=== PATIENT | male | born 1945 | race Caucasian/White ===

== ENCOUNTER 2021-08-21 07:54 | Observation (INO) | payer MEDICARE ==
[~2021-08-21] VITALS: Ht 175.3 cm; Wt 88.2 kg
[~2021-08-21 07:54] MED LIST: ATORVASTATIN CA20 MG PO; Aspir 8181 MG PO; METF500C PO; Prinivil10 MG PO; TAMSULOSIN HCL0.4 M1 PO
[2021-08-21 08:22] LABS: BASOPHILS ABSOLUTE AUTO 0.01 K/mm3 (0.00-0.23); BASOPHILS PERCENT AUTO 0 % (0-2); EOSINOPHILS ABSOLUTE AUTO 0.04 K/mm3 (0.00-0.68); EOSINOPHILS PERCENT AUTO 1 % (0-6); Hematocrit 41.6 % (37.0-53.0); Hemoglobin 14.1 g/dL (13.5-17.5); IMMATURE GRAN ABSOLUTE AUTO 0.03 K/mm3 (0.00-0.10); IMMATURE GRAN PERCENT AUTO 0 % (0-1); LYMPHOCYTES ABSOLUTE AUTO 1.44 K/mm3 (0.84-5.20); LYMPHOCYTES PERCENT AUTO 20 % (21-46); MONOCYTES PERCENT AUTO 6 % (4-13); Mean Corpuscular HGB Conc 33.9 g/dL (31.5-36.5); Mean Corpuscular Volume 83 fL (80-100); NEUTROPHILS ABSOLUTE AUTO 5.34 K/mm3 (1.96-9.15); NEUTROPHILS PERCENT AUTO 74 % (41-73); Platelet Count 108 K/mm3 (150-400); RDW Coefficient Variation 13.4 % (11.7-14.2); RDW Standard Deviation 40.3 fL (35.1-46.3); Red Blood Cell Count 5.04 M/mm3 (4.30-5.90); White Blood Cell Count 7.26 K/mm3 (4.00-11.30)
[2021-08-21 08:40] LABS: Albumin, Blood 3.7 g/dL (3.4-5.0); Albumin/Globulin Ratio 1.2 (0.8-1.8); Bilirubin, Total 0.6 mg/dL (0.1-1.0); Bun/Creatinine Ratio 43.2 (12.0-20.0); Calcium, Blood 9.1 mg/dL (8.5-10.1); Creatinine, Blood 0.74 mg/dL (0.60-1.20); Globulin, Blood 3.1 g/dL (2.2-4.0); Potassium, Blood 4.2 mmol/L (3.5-5.5); Total Protein, Blood 6.8 g/dL (6.4-8.2)
[2021-08-21 09:39] LABS: Prothrombin Time Results 10.5 Sec (9.7-11.5)
[2021-08-21] MEDS ORDERED: BASAGLAR K100 UNIT/3 SC (10:10)
[2021-08-21] MEDS ORDERED: METOPROLOL SUCC25 MG PO (10:10)
--- NOTE | 2021-08-21 13:34 | NUR ---
PT TO ROOM FROM ED AT 1445. PT ABLE TO AMBULATE TO BED FROM STRETCHER. PT PLACED ON MONITOR AND TELE BOX APPLIED AND CONFIRMED WITH MANAGER TELECOM. PT SR 60'S. PT STATES ALL SYMPTOMS RESOLVED, BACK TO NORMAL STRENGTH. NO NEEDS VOICED AT THIS TIME. CALL LIGHT WITHIN REACH. WILL CONTINUE TO MONITOR.
--- NOTE | 2021-08-21 18:06 | NUR ---
SHIFT SUMMARY PT ALERT AND ORIENTED, FOLLOWS COMMANDS. PT AMBULATING TO BATHROOM UNASSISTED. PT REMAINS AT BASELINE WITH FULL STRENGTH IN ALL EXTREMITIES, NO DEFICITS NOTED. PT TOLERATING DIET. NO NEEDS VOICED AT THIS TIME. WILL CONTINUE TO MONITOR.
--- NOTE | 2021-08-22 04:15 | NUR ---
SHIFT SUMMARY PATIENT HAD NO ACUTE CHANGES OBSERVED. AXOX 4 AND INDEPENDENT IN ROOM. MOVES ALL EXTREMITIES WELL. NO DEFICIT NOTICED. CBG 179. TELE MONITOR SB 57. DENIES PAIN, SOB, AND N/V. VSS/AFEBRILE. CALL LIGHT IN REACH. BED IN LOWEST POSITION. WILL CONTINUE TO MONITOR UNTIL DAY SHIFT NURSE ASSUMES CARE.
[2021-08-22 06:31] LABS: BASOPHILS ABSOLUTE AUTO 0.01 K/mm3 (0.00-0.23); BASOPHILS PERCENT AUTO 0 % (0-2); EOSINOPHILS ABSOLUTE AUTO 0.08 K/mm3 (0.00-0.68); EOSINOPHILS PERCENT AUTO 1 % (0-6); Hematocrit 40.4 % (37.0-53.0); Hemoglobin 13.9 g/dL (13.5-17.5); IMMATURE GRAN ABSOLUTE AUTO 0.02 K/mm3 (0.00-0.10); IMMATURE GRAN PERCENT AUTO 0 % (0-1); LYMPHOCYTES ABSOLUTE AUTO 1.54 K/mm3 (0.84-5.20); LYMPHOCYTES PERCENT AUTO 25 % (21-46); MONOCYTES ABSOLUTE AUTO 0.43 K/mm3 (0.16-1.47); MONOCYTES PERCENT AUTO 7 % (4-13); Mean Corpuscular HGB 28.3 pg (26.0-34.0); Mean Corpuscular HGB Conc 34.4 g/dL (31.5-36.5); Mean Corpuscular Volume 82 fL (80-100); Mean Platelet Volume 12.3 fL (9.1-12.4); NEUTROPHILS ABSOLUTE AUTO 4.02 K/mm3 (1.96-9.15); NEUTROPHILS PERCENT AUTO 66 % (41-73); Platelet Count 98 K/mm3 (150-400); RDW Coefficient Variation 13.2 % (11.7-14.2); RDW Standard Deviation 39.8 fL (35.1-46.3); Red Blood Cell Count 4.92 M/mm3 (4.30-5.90)
[2021-08-22 06:51] LABS: Albumin, Blood 3.6 g/dL (3.4-5.0); Albumin/Globulin Ratio 1.2 (0.8-1.8); Bilirubin, Total 0.5 mg/dL (0.1-1.0); Bun/Creatinine Ratio 35.2 (12.0-20.0); Calcium, Blood 9.1 mg/dL (8.5-10.1); Creatinine, Blood 0.77 mg/dL (0.60-1.20); Globulin, Blood 2.9 g/dL (2.2-4.0); Potassium, Blood 3.6 mmol/L (3.5-5.5); Total Protein, Blood 6.5 g/dL (6.4-8.2)
[2021-08-22] MEDS ORDERED: CLOP75 PO (10:34)
--- NOTE | 2021-08-22 10:53 | NUR ---
DISCHARGE SUMMARY DISCHARGE MEDICATION, FOLLOWUP, AND INSTRUCTIONS GIVEN TO PATIENT. PATIENT VOICED COMPLETE UNDERSTANDING AND HAS NO QUESTIONS AT THIS TIME. IV REMOVED WITH CATHETER TIP INTACT. AWAITING RIDE TO ARRIVE. WILL CONTINUE TO MONITOR
== END 2021-08-22 11:14 | disposition home or self-care (01) ==
LOC: ER 07:54 → MEDS 07:55 → SURS 07:55 → MEDS 12:53
PROVIDERS: Emergency Medicine; ADMIT Family Medicine
DX: G45.9 Transient cerebral ischemic attack, unspecified (principal); I10 Essential (primary) hypertension; N40.0 Benign prostatic hyperplasia without lower urinary tract symptoms; G20 Parkinson's disease; E11.36 Type 2 diabetes mellitus with diabetic cataract; E11.21 Type 2 diabetes mellitus with diabetic nephropathy; Z87.891 Personal history of nicotine dependence; Z79.82 Long term (current) use of aspirin; Z79.4 Long term (current) use of insulin; Z79.899 Other long term (current) drug therapy
CPT/HCPCS: 36415; 70450; 70496; 70498; 71045; 80053; 82947; 83036; 85025; 85610; 85730; 93005; 93010; 93306; 96372; 97161; 97165; 97530; 99285-25; A9270; G0378; J1650; J1815; Q9967

== ENCOUNTER 2021-08-23 15:43 | Emergency (ER) | payer MEDICARE ==
[~2021-08-23] VITALS: Ht 175.3 cm; Wt 88.5 kg
[~2021-08-23 15:43] MED LIST changes: +BASAGLAR K100 UNIT/3 SC; +CLOP75 PO; +METOPROLOL SUCC25 MG PO
[2021-08-23 16:45] LABS: BASOPHILS ABSOLUTE AUTO 0.02 K/mm3 (0.00-0.23); BASOPHILS PERCENT AUTO 0 % (0-2); EOSINOPHILS ABSOLUTE AUTO 0.06 K/mm3 (0.00-0.68); EOSINOPHILS PERCENT AUTO 1 % (0-6); Hematocrit 42.5 % (37.0-53.0); Hemoglobin 14.8 g/dL (13.5-17.5); IMMATURE GRAN ABSOLUTE AUTO 0.03 K/mm3 (0.00-0.10); IMMATURE GRAN PERCENT AUTO 0 % (0-1); LYMPHOCYTES ABSOLUTE AUTO 1.67 K/mm3 (0.84-5.20); LYMPHOCYTES PERCENT AUTO 24 % (21-46); MONOCYTES ABSOLUTE AUTO 0.43 K/mm3 (0.16-1.47); MONOCYTES PERCENT AUTO 6 % (4-13); Mean Corpuscular HGB 28.2 pg (26.0-34.0); Mean Corpuscular HGB Conc 34.8 g/dL (31.5-36.5); Mean Corpuscular Volume 81 fL (80-100); Mean Platelet Volume 12.3 fL (9.1-12.4); NEUTROPHILS ABSOLUTE AUTO 4.65 K/mm3 (1.96-9.15); NEUTROPHILS PERCENT AUTO 68 % (41-73); Platelet Count 122 K/mm3 (150-400); RDW Coefficient Variation 13.4 % (11.7-14.2); RDW Standard Deviation 39.3 fL (35.1-46.3); Red Blood Cell Count 5.24 M/mm3 (4.30-5.90); White Blood Cell Count 6.86 K/mm3 (4.00-11.30)
[2021-08-23 17:01] LABS: Albumin, Blood 3.9 g/dL (3.4-5.0); Albumin/Globulin Ratio 1.2 (0.8-1.8); Bilirubin, Total 0.5 mg/dL (0.1-1.0); Bun/Creatinine Ratio 36.5 (12.0-20.0); Calcium, Blood 9.2 mg/dL (8.5-10.1); Creatinine, Blood 0.68 mg/dL (0.60-1.20); Globulin, Blood 3.2 g/dL (2.2-4.0); Potassium, Blood 4.1 mmol/L (3.5-5.5); Total Protein, Blood 7.1 g/dL (6.4-8.2)
[2021-08-24] MEDS ORDERED: ATOR40TA PO (18:18)
[2021-08-24] MEDS ORDERED: LISI20 PO (18:19)
== END 2021-08-24 01:37 | disposition home or self-care (01) ==
LOC: ER 15:43
PROVIDERS: Physician Assistant
DX: G45.9 Transient cerebral ischemic attack, unspecified (principal); R74.8 Abnormal levels of other serum enzymes; I10 Essential (primary) hypertension; E11.9 Type 2 diabetes mellitus without complications; Z79.899 Other long term (current) drug therapy; Z79.82 Long term (current) use of aspirin; Z79.01 Long term (current) use of anticoagulants; Z79.4 Long term (current) use of insulin; Z87.891 Personal history of nicotine dependence
CPT/HCPCS: 36415; 70450; 74177; 80053; 83690; 83880; 84484; 85025; 93005; 93010; Q9967

== ENCOUNTER 2021-08-28 11:05 | Inpatient (IN) | payer MEDICARE ==
[~2021-08-28] VITALS: Ht 175.3 cm; Wt 86.9 kg
[~2021-08-28 11:05] MED LIST changes: +ATOR40TA PO; +LISI20 PO
[2021-08-28 12:07] LABS: BASOPHILS ABSOLUTE AUTO 0.02 K/mm3 (0.00-0.23); BASOPHILS PERCENT AUTO 0 % (0-2); EOSINOPHILS ABSOLUTE AUTO 0.22 K/mm3 (0.00-0.68); EOSINOPHILS PERCENT AUTO 2 % (0-6); Hematocrit 46.6 % (37.0-53.0); Hemoglobin 15.7 g/dL (13.5-17.5); IMMATURE GRAN ABSOLUTE AUTO 0.05 K/mm3 (0.00-0.10); IMMATURE GRAN PERCENT AUTO 0 % (0-1); LYMPHOCYTES ABSOLUTE AUTO 0.69 K/mm3 (0.84-5.20); LYMPHOCYTES PERCENT AUTO 6 % (21-46); MONOCYTES ABSOLUTE AUTO 0.51 K/mm3 (0.16-1.47); MONOCYTES PERCENT AUTO 4 % (4-13); Mean Corpuscular HGB 27.8 pg (26.0-34.0); Mean Corpuscular HGB Conc 33.7 g/dL (31.5-36.5); Mean Corpuscular Volume 83 fL (80-100); NEUTROPHILS ABSOLUTE AUTO 11.02 K/mm3 (1.96-9.15); NEUTROPHILS PERCENT AUTO 88 % (41-73); Platelet Count 119 K/mm3 (150-400); RDW Coefficient Variation 13.2 % (11.7-14.2); RDW Standard Deviation 39.6 fL (35.1-46.3); Red Blood Cell Count 5.64 M/mm3 (4.30-5.90); White Blood Cell Count 12.51 K/mm3 (4.00-11.30)
[2021-08-28 12:20] LABS: Albumin, Blood 3.7 g/dL (3.4-5.0); Albumin/Globulin Ratio 0.9 (0.8-1.8); Bun/Creatinine Ratio 33.5 (12.0-20.0); Calcium, Blood 9.3 mg/dL (8.5-10.1); Creatinine, Blood 0.84 mg/dL (0.60-1.20); Potassium, Blood 4.1 mmol/L (3.5-5.5); Total Protein, Blood 7.7 g/dL (6.4-8.2)
[2021-08-28] MEDS ORDERED: Insulin Glargine-Yfg SC (15:23)
[2021-08-28] MEDS ORDERED: ATORVASTATIN CA80 M1 PO (15:24)
[2021-08-28] MEDS ORDERED: CLOP75 PO (15:25)
[2021-08-28] MEDS ORDERED: METFORMIN ER1000 M1 PO (15:26)
[2021-08-28] MEDS ORDERED: METO25ER PO (15:28)
[2021-08-28] MEDS ORDERED: FLOMAX0.4 MG PO (15:29)
--- NOTE | 2021-08-28 19:13 | NUR ---
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 RT SIDED WEAKNESS AND FACIAL DROOP IS NEARLY AT BASELINE FROM PREVIOUS TIA/CVA. URINAL PROVIDED FOR PT AT BEDSIDE, PT COMBATIVE AND REFUSING HELP WITH URINAL, INSISTANT THAT HE NEEDS TO WALK TO BATHROOM WITH NO SUPERVISION, PER PT IS UNABLE TO WALK STEADILY AT THE MOMENT. BED ALARM IS ON AND PT IS ARGUMENITIVE WITH STAFF OVER BED ALARM. PT ON TELE WITH NS IN THE 80S. PT ORIENTED TO ROOM/SURROUNDINGS/CALL LIGHT AND CALL LIGHT WITHIN REACH.
--- NOTE | 2021-08-29 04:55 | NUR ---
SHIFT SUMMARY: PT WAS A TRANSFER FROM THE MEDICAL FLOOR D/T INCREASED AGITATION AND BED EXITING. HE DID WELL ONCE BACK IN THE SCU. THE RN AND PATIENT MADE A BATHROOM CONTRACT THAT THE PT WOULD ALWAYS CALL BEFORE GETTING OOB. AROUND 0430 THE PT REPORT TO THE PHLEB, HE WAS SEEING VISUAL HALLUCINATIONS. HE REPORTED THAT TO THE RN WELL. PER TELE MONITOR: SR/98. HE IS A 1 PA W/ FWW TO BR. HE HAS RT. SIDED DEFICIT AND NEEDS SUPPORT ON THAT SIDE. THE BED ALARM IS SET FOR PATIENT SAFETY.
[2021-08-29 04:57] LABS: BASOPHILS ABSOLUTE AUTO 0.02 K/mm3 (0.00-0.23); BASOPHILS PERCENT AUTO 0 % (0-2); EOSINOPHILS ABSOLUTE AUTO 0.13 K/mm3 (0.00-0.68); EOSINOPHILS PERCENT AUTO 1 % (0-6); Hematocrit 42.3 % (37.0-53.0); Hemoglobin 14.2 g/dL (13.5-17.5); IMMATURE GRAN ABSOLUTE AUTO 0.07 K/mm3 (0.00-0.10); IMMATURE GRAN PERCENT AUTO 1 % (0-1); LYMPHOCYTES ABSOLUTE AUTO 0.61 K/mm3 (0.84-5.20); LYMPHOCYTES PERCENT AUTO 4 % (21-46); MONOCYTES PERCENT AUTO 4 % (4-13); Mean Corpuscular HGB 27.5 pg (26.0-34.0); Mean Corpuscular HGB Conc 33.6 g/dL (31.5-36.5); Mean Corpuscular Volume 82 fL (80-100); Mean Platelet Volume 12.5 fL (9.1-12.4); NEUTROPHILS ABSOLUTE AUTO 12.33 K/mm3 (1.96-9.15); NEUTROPHILS PERCENT AUTO 90 % (41-73); Platelet Count 119 K/mm3 (150-400); RDW Coefficient Variation 13.4 % (11.7-14.2); RDW Standard Deviation 39.7 fL (35.1-46.3); Red Blood Cell Count 5.16 M/mm3 (4.30-5.90); White Blood Cell Count 13.76 K/mm3 (4.00-11.30)
[2021-08-29 05:40] LABS: Albumin, Blood 3.7 g/dL (3.4-5.0); Albumin/Globulin Ratio 1.2 (0.8-1.8); Bilirubin, Total 0.6 mg/dL (0.1-1.0); Bun/Creatinine Ratio 31.2 (12.0-20.0); Creatinine, Blood 0.86 mg/dL (0.60-1.20); Potassium, Blood 3.7 mmol/L (3.5-5.5); Total Protein, Blood 6.7 g/dL (6.4-8.2)
--- NOTE | 2021-08-29 19:26 | NUR ---
SHIFT SUMMARY- PT ALERT AND ORIENTED TO SELF AND FAMILY. PT IS VERY PRIVATE AND STAFF HAVE MADE EFFORTS TO ACCOMIDATE HIM WHERE POSSIBLE. SPOKE TO NIGHT RN ABOUT OFFERING A SHOWER [facility] DAY SHIFT WAS ALL FEMALE. PT WOULD LIKELY BE MORE COMFORTABLE WITH A MALE FOR THIS PART OF HIS CARE. PLAN IS FOR IRU FOR THIS PT, FAMILY AND PT ARE AWARE. PT SITTING UP IN A CHAIR EATING DINNER, CALL LIGHT IN REACH NO S&S OF DISTRESS PASSED ON TO NIGHT RN IN REPORT.
--- NOTE | 2021-08-30 06:10 | NUR ---
SUMMARY NO CHANGES NOTED. PT HAS BEEN SLEEPING FOR MOST OF SHIFT. PT BECOMES EASILY ADGITATED AND STATES HE WANTS TO GO HOME. RASH REMAINS. PT REPORTS LESS ITCHINESS. CALL LIGHT IN REACH AND BEDALARM ON.
--- NOTE | 2021-08-30 17:05 | NUR ---
SHIFT SUMMARY- PT VSS. PT STATED HE DID NOT LIKE THE FOOD AT THE HOSPITAL OTHERWISE HIS APPETITE WOULD BE BETTER. PT REPORTS HE FEELS HE CAN GRASP AND MOVE HIS RIGHT ARM BETTER THAN YESTERDAY, BT STILL FEELS UNDERSTANDABLY WEAK. PT AMBULATED TO RESTROOM TO VOID X3-4. PT WITH FAMILY AT BEDSIDE. PT UP IN CHAIR FOR PART OF SHIFT. PT RESTING NOW WITH CALL LIGHT IN REACH.
--- NOTE | 2021-08-31 04:45 | NUR ---
SHIFT SUMMARY: PT IS A/OX3. HE DID NOT REPORT ANY AUDITORY OR VISUAL HALLUCINATIONS THIS SHIFT. HE DID LOSE AN IV AND A NEW 22G WAS PUT IN HIS RIGHT FOREARM. PER TELE MONITOR: SR/70. HE SEEMED TO BE MORE RESTFUL THIS SHIFT. HIS RT HAND HAS MORE PALLETIZER STRENGTH; WHEN AMBULATING HIS RIGHT LEG DOESN'T DRIFT MUCH AND HE'S ABLE TO BEAR MORE WEIGHT ON IT WHILE USING 1 PA AND THE FOUR PRONG CANE. HIS CALL LIGHT IS WITHIN REACH AND WE'LL KEEP MONITORING THE REST OF THE SHIFT.
--- NOTE | 2021-08-31 17:33 | NUR ---
SHIFT SUMMARY- PT VSS. PT APPETITE BETTER TODAY. FAMILY AT BEDSIDE. PT ITCHY MIDAFTERNOON, TREATED PER EMAR. PT AMBULATED TO RESTROOM TO VOID SEVERAL TIMES DURING SHIFT WITH SBA. RIGHT SIDE WEAKNESS STILL NOTED BUT PT STATES IT FEELS A BIT STRONGER. PT RESTING NOW IN CHAIR WITH CALL LIGHT IN REACH.
--- NOTE | 2021-09-01 03:59 | NUR ---
SHIFT SUMMARY PT SLEEPING OFF AND ON THROUGHOUT THE NIGHT. PT HAS NO COMPLAINTS AT THIS TIME. PT HAS CALL LIGHT WITHIN REACH AND HE USES IT APPROPRIATELY.
--- NOTE | 2021-09-01 09:40 | NUR ---
pt sitting in a chair, he is upset states he's depressed because he wasted his time sitting here doing nothing over the weekend, and could have been home, came in room, he doesn't really answer if he wants to go to rehab, so asks to speak to caremgr get some questions answered about rehab, notified charge nurse, pt is a/ox3, but seems to fixate and needs things clarified, follows commands, lungs are clear t/o, resp even and unlabore, no cough noted, hrr, no edema noted, ppp+2, cap refill<3sec, vs stable, afebrile, iv site is clear and patent, btx4, abd flat soft nontender, voids without diff, skin c/w/d, maew, tahir, call light in reach.
--- NOTE | 2021-09-01 18:49 | NUR ---
pt has calmed down this afternoon and evening, he has been in the chair most of the day, ambulating to the bathroom with one person assist, did lay down a few times, did work with therapy this afternoon, has been at bedside. call light in reach.
--- NOTE | 2021-09-02 04:01 | NUR ---
PT C/O ITCHING AND STATED THAT THE MED HE'D PREVIOUSLY RECIEVED "DIDN'T WORK". BUT HE ALSO SAID THE "OTHER MED HE'D BEEN GIVEN BEFORE DIDN'T WORK EITHER". STAFF RESEARCHED WHICH OTHER MEDS FOR ITCHING HE COULD'VE BEEN GIVEN. IT WAS DISCOVERED THAT BENEDRYL HAD BEEN RX'D BUT NEVER RECIEVED. HE'D ONLY BEEN PROVIDED ATARAX THE DAY PRIOR. STAFF RELAYED THIS INFO AND HE ADMITTED IT WAS "IV BENEDRYL THAT WAS GIVEN IN THE AMBULANCE THAT ALSO DIDN'T WORK". THIS RN OFFERED TO CALL THE MD TO GET ANOTHER MED OTHER THAN ATARAX OR BENEDRYL ORDERED. I ALSO OFFERED APPLYING LOTION OR GETTING A TOPICAL ANTIITCH CREAM RX'D. HE STATED THE ITCHING WAS NOT ISOLATED TO ANY AREA BUT "WAS EVERYWHERE SO A CREAM OR LOTION WOULDN'T BE GOOD". I AGAIN STATED I COULD CALL THE DOCTOR TO SEE WHAT HE SUGGESTED. AT THIS TIME THE PT REQUESTED THE ATARAX I HAD ORIGINALLY BROUGHT IN AND OFFERED HIM. I TOLD HIM I WOULD BE BACK TO SEE IF THE MED WORKED WITHIN THE HOUR AND WE COULD REEVALUATE AT THIS TIME. HE AGREED TO THIS PLAN BUT ASKED TO NOT BE AWOKEN IF HE WAS SLEEPING. THE MATERIALS AND CORROSION ENGINEER ENTERED HIS ROOM FOLLOWING ME FOR AM VITALS AND HE IMMEDIATELY BEGAN STATING THAT I'D DONE "NOTHING TO HELP HIM ALL NIGHT" AND THAT HE'D "ONLY SEEN ME TWICE". PT COMPLETELY DISREGARDED THE ENTIRE CONVERSATION AND VARIOUS OPTIONS I'D JUST PROVIDED HIM IN WHICH I FOLLOWED HIS EXPRESSED WISHES. HE ALSO MUST NOT HAVE RECALLED THE OTHER TIMES I'D PROVIDED HIM MEDS AND TAKEN HIM TO THE RESTROOM. THE MATERIALS AND CORROSION ENGINEER ASSISTED TO TALK HIM DOWN. HE THEN ASKED THAT WE "DON'T WAKE HIM FOR MORNING VITALS EVER AGAIN". THIS RN WILL BE SURE TO PASS THIS INFO ALONG IN SHIFT REPORT. PT IS CURRENTLY RESTING W/O S/S DISTRESS AND BEING LEFT ALONE PER HIS REQUESTS. I WILL CONTINUE TO ROUND BUT NOT WAKE HIM IF HE IS SLEEPING AND WILL REEVALUATE PRN MEDS FOR ITCHING IF HE IS AWAKE AND COMPLAINS AGAIN.
--- NOTE | 2021-09-02 05:05 | NUR ---
PT REPORTS ITCHING IS IMPROVED DESPITE RASH PERSISTING AND ADMITS THAT ATARAX SEEMED TO WORK. HE APPEARS TO BE IN BETTER SPIRITS AT THIS TIME. HE ALSO DEMONSTRATED THAT R.SIDE STRENGTH IS IMPROVING WITH NEARLY EQUAL ROLLER MILL OPERATOR STRENGTH, STANDING AT EOB W/O ASSIST AND TAKING STEPS W/O USE OF CANE. BALANCE STILL SEEMS UNSTEADY AND R.FACIAL DROOP PERSISTS BUT THERE DOES APPEAR TO BE SOME IMPROVEMENT OVERALL. PT PLEASANT AT THIS TIMES AND IS DENYING NEEDS.
--- NOTE | 2021-09-02 05:15 | NUR ---
SUMMARY: PT A/OX3 BUT CAN BE VERY IRRITABLE, CONTANKEROUS AND DISGREEABLE AT TIMES. HE EXHIBITED CONTRADICTORY BEHAVIOR AT TIMES, GOVERNING CARE AND MEDICATION DESIRES THEN STATING CONTRARY WISHES TO OTHER STAFF. HE WOULD BE PLEASANT AND COOPERATIVE THEN UPSET AND NONCOMPLIANT. STAFF ATTEMPTED TO MEET ALL REQUESTS/NEEDS WITHIN A TIMELY MANOR AND USED EDUCATION AND THERAPEUTIC COMMUNICATION WHEN SEEMINGLY FRUSTRATED. PT WAS UP 1PA ASSIST TO TOILET AND USED URINAL AT TIMES AT EOB. HE'S VERY PARTICULAR RE:CLEANLINESS OF CERTAIN THINGS IN HIS ROOM. HE HAD STAFF WIPE DOWN THE KEYBOARD AND BEDSIDE TABLE AND LIKES URINAL RINSED BETWEEN USES. PT WAS ALSO PROVIDED X4 NEW URINALS THIS SHIFT PER HIS REQUEST. RASH PERSISTS AND PT DOES APPEAR FLUSHED. ATARAX RECIEVED X2 DOSES W/1ST INEFFECTIVE AND 2ND PROVIDING RELIEF. (SEE NOTES FOR PREVIOUS DETAILS ON THIS.) HE CONT'S TO HAVE SOME R.SIDE WEAKNESS BUT STRENGTH DOES TO SEEM TO BE IMPROVING. RESOURCE MANAGEMENT SPECIALIST ARE NOW NEARLY EQUAL AND NO DISCRIPENCIES ARE OBSERVED TO BLE'S. GAIT REMAINS SLIGHTLY UNSTEADY THOUGH AND FALL PREC'S ARE IN PLACE. PT DOESN'T HAVE SWALLOW ISSUES BUT R.FACIAL DROOP PERSISTS. SNF PLACEMENT IS PENDING. VSS/AFEBRILE, NO ACUTE CHANGES. PT REMAINS NSR AT 60'S- 70'S BPM. WCTM AND REPORT TO DAY RN.
[2021-09-02 05:53] LABS: BASOPHILS ABSOLUTE AUTO 0.02 K/mm3 (0.00-0.23); BASOPHILS PERCENT AUTO 0 % (0-2); EOSINOPHILS ABSOLUTE AUTO 0.35 K/mm3 (0.00-0.68); EOSINOPHILS PERCENT AUTO 5 % (0-6); Hematocrit 41.7 % (37.0-53.0); Hemoglobin 14.5 g/dL (13.5-17.5); IMMATURE GRAN ABSOLUTE AUTO 0.03 K/mm3 (0.00-0.10); IMMATURE GRAN PERCENT AUTO 0 % (0-1); LYMPHOCYTES ABSOLUTE AUTO 1.81 K/mm3 (0.84-5.20); LYMPHOCYTES PERCENT AUTO 23 % (21-46); MONOCYTES ABSOLUTE AUTO 0.69 K/mm3 (0.16-1.47); MONOCYTES PERCENT AUTO 9 % (4-13); Mean Corpuscular HGB 27.8 pg (26.0-34.0); Mean Corpuscular HGB Conc 34.8 g/dL (31.5-36.5); Mean Corpuscular Volume 80 fL (80-100); NEUTROPHILS ABSOLUTE AUTO 4.94 K/mm3 (1.96-9.15); NEUTROPHILS PERCENT AUTO 63 % (41-73); Platelet Count 127 K/mm3 (150-400); RDW Standard Deviation 37.3 fL (35.1-46.3); Red Blood Cell Count 5.22 M/mm3 (4.30-5.90); White Blood Cell Count 7.84 K/mm3 (4.00-11.30)
[2021-09-02 06:15] LABS: Albumin, Blood 3.7 g/dL (3.4-5.0); Anion Gap 9 mmol/L (6-16); Blood Urea Nitrogen 22 mg/dL (8-24); Bun/Creatinine Ratio 23.6 (12.0-20.0); CO2, Blood 27 mmol/L (21-32); Calcium, Blood 9.5 mg/dL (8.5-10.1); Chloride, Blood 107 mmol/L (98-108); Creatinine, Blood 0.93 mg/dL (0.60-1.20); Glomerular Filtration Rate 86 (60-); Glucose, Blood 135 mg/dL (70-99); Magnesium, Blood 1.7 mg/dL (1.6-2.4); Phosphorus, Blood 3.2 mg/dL (2.5-4.9); Potassium, Blood 3.8 mmol/L (3.5-5.5); Sodium, Blood 143 mmol/L (136-145)
[2021-09-02] MEDS ORDERED: INSULANPEN SC (15:00)
[2021-09-02] MEDS ORDERED: METF500 PO (15:01)
[2021-09-02] MEDS ORDERED: HYDHCL25 PO (15:01)
[2021-09-02] MEDS ORDERED: ELIQUIS5 M2 PO (15:02)
--- NOTE | 2021-09-02 16:30 | NUR ---
DISCHARGE INSTRUCTIONS COMPLETED AND DISCUSSED WITH PT AND . IN WITH SCRIPT FOR OUTPATIENT REHAB SO PT CAN GO WITHIN THIS WEEK. HAS BEEN WALKING IN TO BATHROOM WITH QUAD CANE AND SUPERVISION WITH GAIT BELT. TO CURB VIA W/C.
== END 2021-09-02 16:05 | disposition home health service (06) | DRG 65 ==
LOC: ER 11:05 → MEDS 11:06
PROVIDERS: Emergency Medicine; Family Medicine; ADMIT Family Medicine
DX: I63.9 Cerebral infarction, unspecified (principal); I48.92 Unspecified atrial flutter; I69.351 Hemiplegia and hemiparesis following cerebral infarction affecting right dominant side; N40.0 Benign prostatic hyperplasia without lower urinary tract symptoms; Z66 Do not resuscitate; R47.81 Slurred speech; L27.0 Generalized skin eruption due to drugs and medicaments taken internally; T46.4X5A Adverse effect of angiotensin-converting-enzyme inhibitors, initial encounter; I10 Essential (primary) hypertension; E11.9 Type 2 diabetes mellitus without complications; R29.810 Facial weakness; H26.9 Unspecified cataract; Z95.2 Presence of prosthetic heart valve; Z79.02 Long term (current) use of antithrombotics/antiplatelets; Z79.4 Long term (current) use of insulin; Z79.84 Long term (current) use of oral hypoglycemic drugs; Z79.899 Other long term (current) drug therapy; Z79.82 Long term (current) use of aspirin; Z87.891 Personal history of nicotine dependence
CPT/HCPCS: 36415; 70450; 70551; 80053; 80069; 82947; 83735; 85025; 92610; 93005; 93010; 93246; 96372; 96374; 96375; 97110; 97112; 97116; 97162; 97166; 97530; 97535; 99285-25; A9270; G0378; J1100; J1200; J1650; J1815

== ENCOUNTER 2022-06-04 09:18 | Day surgery (SDC) | payer MEDICARE ==
[~2022-06-04] VITALS: Ht 175.3 cm; Wt 93.7 kg
[~2022-06-04 09:18] MED LIST changes: +ATORVASTATIN CA80 M1 PO; +ELIQUIS5 M2 PO; +FLOMAX0.4 MG PO; +HYDHCL25 PO; +INSULANI; +INSULANPEN SC; +Insulin Glargine-Yfg SC; +METF500 PO; +METFORMIN ER1000 M1 PO; +METO25ER PO
[2022-06-04] MEDS ORDERED: HYDHCL25 (09:39)
--- NOTE | 2022-06-04 09:42 | NUR ---
06/04/22 0942 Raina Lowry TETRACIANE TO LEFT EYE AT 0939 PLEDGET TO LEFT EYE AT 0941 BY [facility].REINAG
[2022-06-04 10:53] VITALS: BP 143/81
== END 2022-06-04 11:10 | disposition home or self-care (01) ==
LOC: ORSCSDS 09:18
PROVIDERS: Ophthalmology
PROC: 08DK3ZZ Extraction of Left Lens, Percutaneous Approach (ICD-10-PCS; principal; 2022-06-04 10:30)
DX: E11.36 Type 2 diabetes mellitus with diabetic cataract (principal); H25.12 Age-related nuclear cataract, left eye; I10 Essential (primary) hypertension; Z79.84 Long term (current) use of oral hypoglycemic drugs; Z79.02 Long term (current) use of antithrombotics/antiplatelets; Z79.899 Other long term (current) drug therapy
CPT/HCPCS: 82947; J2001; J2250; J3010; J3301; J7040; V2632

== ENCOUNTER 2022-06-11 09:16 | Day surgery (SDC) | payer MEDICARE ==
[~2022-06-11] VITALS: Ht 177.8 cm; Wt 93.4 kg
[~2022-06-11 09:16] MED LIST changes: +HYDHCL25
--- NOTE | 2022-06-11 10:00 | NUR ---
06/11/22 Yue Souza TETRACAINE PER ORDERS AT 0944, YENY PER ORDERS AT 0945
[2022-06-11 11:03] VITALS: BP 151/79
== END 2022-06-11 11:22 | disposition home or self-care (01) ==
LOC: ORSCSDS 09:16
PROVIDERS: Ophthalmology
PROC: 08DJ3ZZ Extraction of Right Lens, Percutaneous Approach (ICD-10-PCS; principal; 2022-06-11 10:30)
DX: E11.36 Type 2 diabetes mellitus with diabetic cataract (principal); H25.11 Age-related nuclear cataract, right eye; Z96.1 Presence of intraocular lens; H21.81 Floppy iris syndrome; I10 Essential (primary) hypertension; Z79.02 Long term (current) use of antithrombotics/antiplatelets; Z79.4 Long term (current) use of insulin; Z79.84 Long term (current) use of oral hypoglycemic drugs; Z79.899 Other long term (current) drug therapy
CPT/HCPCS: 82947; J2001; J2250; J3010; J3301; J7040; V2632

== ENCOUNTER 2024-09-18 00:17 | Day surgery (SDC) | payer MEDICARE ==
[2024-09-18] MEDS ORDERED: Sod Ferric Gluc Complx/Sucrose 125 MG in NS 100 ML IV SCH (01:00)
[2024-09-18 13:56] VITALS: BP 138/60
== END 2024-09-18 15:06 | disposition home or self-care (01) ==
LOC: ATC 00:17
DX: D50.0 Iron deficiency anemia secondary to blood loss (chronic) (principal); I10 Essential (primary) hypertension; E11.9 Type 2 diabetes mellitus without complications; G20.C Parkinsonism, unspecified; Z79.82 Long term (current) use of aspirin; Z79.84 Long term (current) use of oral hypoglycemic drugs; Z79.899 Other long term (current) drug therapy; Z88.8 Allergy status to other drugs, medicaments and biological substances
CPT/HCPCS: 96365; J2916

== ENCOUNTER 2024-09-25 00:24 | Day surgery (SDC) | payer MEDICARE ==
[2024-09-25] MEDS ORDERED: Sod Ferric Gluc Complx/Sucrose 125 MG in NS 100 ML IV SCH (01:00)
[2024-09-25 13:46] VITALS: BP 114/77
== END 2024-09-25 14:50 | disposition home or self-care (01) ==
LOC: ATC 00:24
DX: D50.0 Iron deficiency anemia secondary to blood loss (chronic) (principal); N40.1 Benign prostatic hyperplasia with lower urinary tract symptoms; R39.12 Poor urinary stream; R35.0 Frequency of micturition; E11.9 Type 2 diabetes mellitus without complications; K92.2 Gastrointestinal hemorrhage, unspecified; I10 Essential (primary) hypertension; E78.2 Mixed hyperlipidemia; G20.C Parkinsonism, unspecified; I49.3 Ventricular premature depolarization; N40.0 Benign prostatic hyperplasia without lower urinary tract symptoms; Z86.73 Personal history of transient ischemic attack (TIA), and cerebral infarction without residual deficits; Z87.891 Personal history of nicotine dependence; Z79.02 Long term (current) use of antithrombotics/antiplatelets; Z79.4 Long term (current) use of insulin; Z79.82 Long term (current) use of aspirin; Z79.84 Long term (current) use of oral hypoglycemic drugs; Z79.899 Other long term (current) drug therapy
CPT/HCPCS: 96365; J2916

== ENCOUNTER 2024-10-10 01:19 | Day surgery (SDC) | payer MEDICARE ==
[~2024-10-10 01:19] MED LIST changes: +Sod Ferric Gluc Complx/Sucrose 125 MG in NS 100 ML IV SCH
[2024-10-10 14:01] VITALS: BP 171/84
== END 2024-10-10 15:00 | disposition home or self-care (01) ==
LOC: ATC 01:19
DX: D50.0 Iron deficiency anemia secondary to blood loss (chronic) (principal); E11.9 Type 2 diabetes mellitus without complications; I70.0 Atherosclerosis of aorta; I10 Essential (primary) hypertension; E78.2 Mixed hyperlipidemia; G20.C Parkinsonism, unspecified; Z95.2 Presence of prosthetic heart valve; Z79.4 Long term (current) use of insulin; Z79.82 Long term (current) use of aspirin; Z79.02 Long term (current) use of antithrombotics/antiplatelets; Z79.899 Other long term (current) drug therapy; Z88.8 Allergy status to other drugs, medicaments and biological substances
CPT/HCPCS: 96365; J2916